=== PATIENT | female | born 1940 | race Hispanic/Latino ===

== ENCOUNTER → 2023-04-27 | Outpatient (CLI) | payer OTHER | END | disposition home or self-care (01) | LOC: RAH 07:48 | PROVIDERS: ATTEND Family Medicine | DX: R60.0 Localized edema (principal); M79.605 Pain in left leg | CPT/HCPCS: 93926 ==

== ENCOUNTER → 2025-01-08 | Outpatient (CLI) | payer OTHER ==
[~2025-01-08] MED LIST: ALBU2.5V2 NEB; CARV12.511 PO; FURO20TA4 PO; IOHEXOL-350 75 ML VIAL IV ONE; LOSA-417 PO; PANT40TA54 PO; PRAV40TA62 PO
--- NOTE | 2025-01-09 08:06 | HMCIMG ---
EXAM: CT Chest with and without Intravenous Contrast CLINICAL HISTORY: Chronic obstructive pulmonary disease with acute exacerbation TECHNIQUE: Axial computed tomography images of the chest obtained with and without intravenous contrast. CONTRAST: Intravenous contrast was administered. COMPARISON: Compared to prior CR dated on 12/22/2024. FINDINGS: LUNGS: Basal bilateral atelectatic changes are seen. No pulmonary infiltrates. A 3.7 mm solid nodule is noted in the subpleural right lower lobe. A 2.5 mm fibrotic nodule in the right lower lobe with associated fibroatelectatic changes. A 4.5 mm fibrotic nodule is noted in the right lower lobe. A 3.6 mm ground-glass opacity nodule is seen in the left lingular lobe. A 3.8 mm solid nodule is also noted in the left lingular lobe. Few 2???3 mm nodules seen in the right lower lobe. Linear scarring is present in the left lingular lobe. PLEURAL SPACES: No evidence of pneumothorax or pleural effusion. HEART AND VASCULATURE: Mild prominence of the left cardiac chambers. No thoracic aortic aneurysm. Calcified atherosclerotic changes are seen in the intrathoracic aorta and coronary vessels. LYMPH NODES: Few subcentimetric pre-paratracheal and pre-periaortic lymph nodes are noted. UPPER ABDOMEN: A moderate sliding hiatus hernia is present. A 7.7 ??? 11.6 mm hypodense area is seen in the spleen, likely representing a small cyst or hemangioma. BONES: Multilevel mild degenerative changes and spondylosis are noted. Compared to prior ctr dated on 12/22/2024 distal IMPRESSION: Multiple bilateral pulmonary nodules, the largest measuring 4.5 mm in the right lower lobe. LUNG RADS 2: Follow up in 12 months with LDCT. No pulmonary infiltrates or pleural effusions. Bibasilar atelectasis. Atherosclerosis and coronary artery disease. Moderate sliding hiatus hernia. /[place]
== END | disposition home or self-care (01) ==
LOC: RAH 10:31
PROVIDERS: ATTEND Family Medicine
DX: J44.1 Chronic obstructive pulmonary disease with (acute) exacerbation (principal); R05.9 Cough, unspecified; J18.9 Pneumonia, unspecified organism; I25.10 Atherosclerotic heart disease of native coronary artery without angina pectoris; K44.9 Diaphragmatic hernia without obstruction or gangrene; R91.8 Other nonspecific abnormal finding of lung field; M47.814 Spondylosis without myelopathy or radiculopathy, thoracic region; Z78.9 Other specified health status
CPT/HCPCS: 71270; Q9967 ×2

== ENCOUNTER 2025-02-08 11:40 | Day surgery (SDC) | payer OTHER ==
[2025-02-06 08:37] VITALS: BP 129/63; PULSE 63; RESP 13; TEMP 97.4
[2025-02-06 08:39] LABS: IMMATURE GRANULOCYTE ABSOLUTE 0.02 K/uL (0-1); NUCLEATED RED BLOOD CELLS 0.0 % (0.0-0.19); PLATELET COUNT (AUTO) 157 K/uL (130-400); RED BLOOD CELL COUNT(AUTO) 4.06 MIL/uL (4.00-5.50); RED CELL DISTRIBUTION WIDTH 14.6 % (11.0-15.5); WHITE BLOOD COUNT (AUTO) 6.8 K/uL (4.8-10.8)
[2025-02-06 08:43] LABS: APPEARANCE,URINE CLOUDY (CLEAR); GLUCOSE, URINE (UA) NEGATIVE (NEGATIVE); LEUKOCYTE ESTERASE ,URINE 250 Leu/uL (NEGATIVE); NITRATE,URINE NEGATIVE (NEGATIVE); OCCULT BLOOD,URINE +- (TRACE) (NEGATIVE)
[2025-02-06 08:49] LABS: CREATININE 1.0 mg/dL (0.5-1.0); GLOMERULAR FILTR. RATE CALC 56.0 mL/min (>90); GLUCOSE,RANDOM 108.0 mg/dL (70-105); INR 0.97 (0.85-1.15); SODIUM SERUM 143.0 mmol/L (136-145); UREA NITROGEN, BLOOD 19.0 mg/dL (7-18)
[2025-02-06 08:50] LABS: ADD UA MICROSCOPIC YES
[2025-02-06 08:52] LABS: SQUAMOUS EPITHELIAL CELL,UR FEW /HPF (0-2)
--- NOTE | 2025-02-06 11:41 | EKG ---
[facility] Test Date: 2025-02-06 Test Time: 09:22:52 Pat Name: BACILIO BRAVO Department: [facility] Room: Gender: F Intelligence Applications: [id number] : 1940 Requested By: RONALD RAMIREZ Order Number: [id number] Reading MD: Evelyne Moran Measurements Intervals [place] Rate: 58 P: 20 WY: 217 QRS: -27 QRSD: 162 T: 67 QT: 460 QTc: 450 Interpretive Statements Sinus rhythm Borderline prolonged W[place] interval Left bundle branch block Compared to ECG 12/22/2024 09:29:02 No significant changes Electronically Signed On 02-07-2025 12:33:19 MANAGER APPOINTMENT by Evelyne Moran Please click the below link to view image of tracing.
--- NOTE | 2025-02-06 23:41 | HMCIMG ---
Study CR Chest, 1 View Clinical History Preoperative evaluation. Comparison Chest radiograph dated December 22, 2024, 10:06 EDT, which demonstrated mild cardiomegaly without acute cardiopulmonary findings. Findings Lungs: Left basal subsegmental atelectasis is present. No focal consolidation or pulmonary mass identified. Pleural Spaces: Blunting of the left costophrenic angle, suggestive of a minimal left pleural effusion, which represents a new finding compared to the prior study. No pneumothorax. Mediastinum: Cardiac silhouette remains enlarged, consistent with stable cardiomegaly. Mediastinal contours are otherwise normal. Bones: No acute osseous abnormality. Impression * Interval stable cardiomegaly. * New minimal left pleural effusion with associated left basal atelectasis. * No focal consolidation or pneumothorax. Compared with the prior chest radiograph dated December 22, 2024, cardiomegaly remains stable. Newly developed minimal left pleural effusion and basal atelectasis are now evident. No new pulmonary consolidation or acute osseous abnormality identified. /[place]
--- NOTE | 2025-02-07 14:49 | NUR ---
report reported ua to dr navarro and cfu greater than 100,000. susceptibility still pending. received instructions to fax over to office. cxr and preliminary on identifications were faxed over to nithya and confirmed that they received Addendum: 02/07/25 at 1634 by ANKIT ZUNIGA RN RN ok to proceed as per Kelsie zaman
[~2025-02-08] VITALS: Ht 160 cm; Wt 89.3 kg
[2025-02-08] VITALS (9 sets, daily range): BP systolic 123–148; BP diastolic 67–78; PULSE 60–76; RESP 16–18; TEMP 97.3–208.6
[~2025-02-08 11:40] MED LIST changes: -ALBU2.5V2 NEB; +AMLO-257 PO; +ASPI-1443 PO; +FLUT1BLS3 IH; -IOHEXOL-350 75 ML VIAL IV ONE
[2025-02-08] MEDS ORDERED: 0.9%NACL 1000ML 1,000 ML IV ONE (13:11)
[2025-02-08] MEDS ORDERED: VERAPAMIL HCL 2.5 MG/ML VIAL ONE (14:59)
[2025-02-08] MEDS ORDERED: LIDOCAINE HCL 400MG/20ML VIAL ONE (14:59)
[2025-02-08] MEDS ORDERED: IOHEXOL 350 MG/ML 100ML INFUS..BTL IV ONE (14:59)
[2025-02-08] MEDS ORDERED: HEParin-NS 1,000 UNIT/500 ML 1,000 ML IV ONE (14:59)
[2025-02-08] MEDS ORDERED: NITROGLYCERIN 50MG VIAL ONE (15:00)
[2025-02-08] MEDS ORDERED: MIDAZOLAM HCL 1 MG/ML 2ML VIAL ONE (15:16)
[2025-02-08] MEDS ORDERED: HEParin-NS 1,000 UNIT/500 ML 500 ML IV ONE (15:50)
--- NOTE | 2025-02-08 16:34 | PRN ---
Cath Procedure Report CATH PROCEDURE REPORT CARDIAC CATHETERIZATION REPORT Date of Service: Feb 08, 2025 PROCEDURE: Left heart catheterization with selective right and left coronary angiography Conscious sedation INDICATIONS: Cardiomyopathy, chest pain AVIATION PROJECT ENGINEER: Cata Moran DO DESCRIPTION OF PROCEDURE: Informed consent was obtained. Patient brought to mill laborer suite in fasting state. Time-out was performed. Conscious sedation was administered by independent qualified mill laborer RN under my direct supervision. No complications secondary to anesthesia. 2% lidocaine was used at the subcutaneous tissues at the right radial access site. Using ultrasound guidance, right radial artery was accessed with placement of six [place] hydrophilic sheath with vasodilator cocktail of 2.5 mg of verapamil and 200 mcg of nitroglycerin given intra- arterially. Patient received a total of 4000 units of heparin given via peripheral IV. Over an 035 J-wire, a six [place] JR4 catheter was advanced into the left ventricle for LVEDP measurement, pullback across aortic valve. Due to significant tortuosity at the aortic arch, unable to selectively engage the right coronary artery therefore the sheath was exchanged for a 95 cm R2P braided hydrophilic sheath. We are then able to utilize the six [place] JR4 catheter to selectively engage the right coronary artery for angiographic visualization. We then exchanged for a six [place] JL 3.5 catheter however were unable to selectively cannulate the left coronary artery therefore the destination sheath was exchanged for an 85 cm R2P braided hydrophilic sheath. We utilized a an ex be six [place] 3.0 guide catheter to selectively cannulate the left coronary artery and multiple angiographic views system. At this point, decision was made not to proceed with pigtail left ventriculography due to patient experiencing radial spasm with sheath exchanged and manipulation of the catheters, therefore catheters wires were then removed at this point and hemostasis achieved with the use of vascular band. FINDINGS: Left main is short, angiographically free of disease Left anterior descending artery with mid 20-30% stenosis with mild myocardial bridging distally. It is a wrap-around LAD. Large caliber 1st diagonal angiographically free of disease and a small caliber 2nd diagonal measuring less than 2 mm caliber displaying luminal irregularities only Left circumflex: Nondominant however large caliber with luminal irregularities in the proximal to midportion. Large caliber OM1, OM2 angiographically free of disease Right coronary artery is a dominant vessel giving off the RPDA. There is proximal 20-30% stenosis only, however otherwise BEATRICE three flow throughout an angiographically free of disease Opening aortic pressure 119/53 with a mean of 78 mm Hg LVEDP 17 mm Hg Gradient approximately 10 mm Hg and peak peak on pullback across the aortic valve CONTRAST 70 cc IMPRESSION: Mild, nonobstructive coronary disease Nonischemic cardiomyopathy CATA MORAN DO Feb 08, 2025 16:34
== END 2025-02-08 19:03 | disposition home or self-care (01) ==
LOC: DAH 11:40
PROVIDERS: ATTEND Internal Medicine
DX: R07.9 Chest pain, unspecified (principal); I42.8 Other cardiomyopathies; I44.7 Left bundle-branch block, unspecified; I11.0 Hypertensive heart disease with heart failure; I44.0 Atrioventricular block, first degree; I50.22 Chronic systolic (congestive) heart failure; R06.09 Other forms of dyspnea; E78.5 Hyperlipidemia, unspecified; R06.02 Shortness of breath; I25.118 Atherosclerotic heart disease of native coronary artery with other forms of angina pectoris; Z79.899 Other long term (current) drug therapy
CPT/HCPCS: 80048; 83880; 85025; 85610; 85730; 87086 ×2; 81001; 36415; 71045; 93005; 93458; 99156; 99157 ×2; 87186; C1887 ×3; C1769 ×2; C1894; A4649; Q9965; J3010; J3490 ×3; J7030; J1644 ×3; J2250; Q9967; A4215; A4222; A4221; A4663; A4216; A4606; A4223 ×3; A4554